=== PATIENT | male | born 1965 | race Hispanic/Latino ===

== ENCOUNTER → 2017-07-12 | Outpatient (CLI) | payer BC ==
--- NOTE | 2017-07-12 22:31 | Diagnostic Imaging Report ---
History: Back pain. Comparison studies: None Technique: Sagittal, coronal and axial T2 , sagittal T1 and IR, axial PD and T2 FS. Intravenous contrast: None Findings: Number of lumbar vertebral bodies: 5. Alignment: Normal lordosis. No scoliosis. Soft tissues: No T2 hyperintense inflammatory changes. Paraspinal muscles: No signal abnormalities. Well-preserved. No atrophic changes Lower thoracic cord: Normal in signal and morphology. The tip of the conus is at L1 . Cauda equina: No masses. No arachnoiditis. Vertebrae: No compression fractures, infection or neoplasm. Degenerative changes: L1-L2: No abnormalities L2-L3: No abnormalities L3-L4: Disc bulge in combination with thickened ligamentum flavum and mild facet arthrosis effaces thecal sac without significant canal stenosis. Mild left inferior foraminal stenosis. L4-L5: Mild degenerative disc disease. Disc bulge in combination with thickened ligamentum flavum and bilateral facet arthrosis effaces thecal sac without significant canal stenosis. Moderate left foraminal stenosis and left lateral recess stenosis. Moderate bilateral facet arthrosis. L5-S1: Disc bulge without significant canal stenosis. Moderate bilateral facet arthrosis. Mild left foraminal stenosis. Visualized portion of bilateral sacroiliac joints: No significant abnormality. IMPRESSION: 1. Mild lumbar spondylosis from level L3-L4 to L5-S1 without significant canal stenosis. 2. Mild left foraminal stenosis at L3-L4 and L5-S1, moderate left foraminal stenosis at L4-L5. 3. Mild to moderate facet arthrosis from L3-L4 to L5-S1. Signed by: Dr. Jenny Milligan M.D. on 07/12/2017 10:27 PM
== END ==
LOC: MRI 15:43
PROVIDERS: ATTEND Radiology Neuroradiology
DX: M48.061 Spinal stenosis, lumbar region without neurogenic claudication (principal)
CPT/HCPCS: 72148